=== PATIENT | female | born 1990 | race Caucasian/White ===

== ENCOUNTER 2017-09-26 16:31 | Emergency (ER) | payer OTHER ==
[~2017-09-26] VITALS: Ht 157.5 cm; Wt 59.9 kg
[~2017-09-26 16:31] MED LIST: BACTRIM DS TAB1 EACH PO; TRINATE TABLET1 TAB PO
[2017-09-26] MEDS ORDERED: KEFLEX500 M1 PO (19:47)
[2017-09-26] MEDS ORDERED: BACTRIM DS TAB1 EACH PO (19:47)
[2017-09-26 19:56] VITALS: BP 92/55
== END 2017-09-26 19:57 | disposition home or self-care (01) ==
LOC: ER 16:31
DX: L03.213 Periorbital cellulitis (principal); F17.210 Nicotine dependence, cigarettes, uncomplicated

== ENCOUNTER 2017-12-08 01:05 | Emergency (ER) | payer OTHER ==
[~2017-12-08] VITALS: Ht 157.5 cm; Wt 59.0 kg
[~2017-12-08 01:05] MED LIST changes: +KEFLEX500 M1 PO
[2017-12-08] MEDS ORDERED: NOHOMEMEDICATIONS (01:35)
[2017-12-08] MEDS ORDERED: BACTRIM DS TAB1 EACH PO (01:39)
[2017-12-08] MEDS ORDERED: ULTRAM 50MG TAB50 MG PO (01:39)
[2017-12-08] MEDS ORDERED: KEFLEX500 M1 PO (01:39)
[2017-12-08 02:19] VITALS: BP 86/51
== END 2017-12-08 02:20 | disposition home or self-care (01) ==
LOC: ER 01:05
DX: L03.213 Periorbital cellulitis (principal); F17.210 Nicotine dependence, cigarettes, uncomplicated